=== PATIENT | male | born 1935 | race Caucasian/White ===

== ENCOUNTER 2016-07-17 08:29 | Day surgery (SDC) | payer MEDICARE ==
[~2016-07-17] VITALS: Ht 175.3 cm; Wt 90.5 kg
[2016-07-17] MEDS ORDERED: SODIUM CHLORID 0.9% 500 ML INJ 500 ML IV SCH (09:00)
[2016-07-17] MEDS ORDERED: SODIUM CHLORID 0.9% 500 ML IV PRN (09:15)
[2016-07-17] MEDS ORDERED: CHLORHEXIDINE GLUCONATE 2 % 1 PACK (2 CLOTHS) TOPICAL PRN (09:15)
[2016-07-17] MEDS ORDERED: LACTATED RINGER'S 1000 ML IV PRN (09:15)
[2016-07-17] MEDS ORDERED: INSULIN HUMAN REGULAR 1,000 UNITS/10 ML VIAL SQ PRN (09:15)
[2016-07-17] MEDS ORDERED: METOPROLOL TARTRATE 25 MG TAB PO PRN (09:15)
[2016-07-17] MEDS ORDERED: POVIDONE IODINE 5% (ANTISEPSIS KIT) 4 APPLICATIONS EACH NARE PRN (09:15)
[2016-07-17] MEDS ORDERED: LORazepam 1 MG TAB SL SCH (09:15)
[2016-07-17] MEDS ORDERED: CITA10TA4 PO (09:19)
[2016-07-17] MEDS ORDERED: AMIO200T PO (09:19)
[2016-07-17] MEDS ORDERED: VITATAB43 PO (09:19)
[2016-07-17] MEDS ORDERED: VITA100018 PO (09:19)
[2016-07-17] MEDS ORDERED: LISI-515 PO (09:19)
[2016-07-17] MEDS ORDERED: ASPI81TA81 (09:19)
[2016-07-17] MEDS ORDERED: PLAV75TA29 PO (09:19)
[2016-07-17] MEDS ORDERED: ATOR40TA16 PO (09:19)
[2016-07-17] MEDS ORDERED: TEMA30CA PO (09:19)
[2016-07-17] MEDS ORDERED: METO25TA3 PO (09:19)
[2016-07-17 09:32] LABS: AUTOMATED NEUTROPHIL # 3.6 TH/MM3 (1.8-7.7); BASOPHIL % 0.3 % (0.0-2.0); EOSINOPHIL # 0.1 TH/MM3 (0-0.4); EOSINOPHIL % 1.7 % (0.0-4.0); HEMATOCRIT 47.9 % (39.0-51.0); HEMO FLAGS DIFF FINAL; LYMPHOCYTE # 1.7 TH/MM3 (1.0-4.8); MEAN CORPUSCULAR HGB CONC 33.7 % (32.0-36.0); MONO % 7.3 % (0.0-8.0); NEUT % 61.7 % (16.0-70.0); PLATELET COUNT 174 TH/MM3 (150-450); RED BLOOD COUNT 5.38 MIL/MM3 (4.50-5.90); RED CELL DISTRIBUTION WIDTH 15.2 % (11.6-17.2); WHITE BLOOD COUNT 5.8 TH/MM3 (4.0-11.0)
[2016-07-17 09:33] VITALS: BP 134/84; PULSE 55; RESP 16; TEMP 97.6; O2SAT 94
[2016-07-17 09:41] LABS: APTT (PATIENT) 28.7 SEC (24.3-30.1); PROTHROMBIN TIME - PATIENT 11.4 SEC (9.8-11.6)
[2016-07-17 09:49] LABS: BICARBONATE 28.7 MEQ/L (21.0-32.0); POTASSIUM 4.1 MEQ/L (3.5-5.1)
[2016-07-17] MEDS ORDERED: ONDANSETRON HCL 4 MG/2 ML VIAL IV PUSH ONE (11:06)
[2016-07-17] MEDS ORDERED: PROPOFOL 200 MG/20 ML AMP IV ONE (11:06)
[2016-07-17] MEDS ORDERED: MIDAZOLAM HCL 2 MG/2 ML VIAL ONE (11:55)
[2016-07-17] MEDS ORDERED: ISOPROTERENOL HCL 1 MG/5 ML AMP ONE ×2 (12:53→12:56)
[2016-07-17] MEDS ORDERED: VANCOMYCIN 500 MG VIAL ONE (13:18)
[2016-07-17] MEDS ORDERED: VANCOMYCIN HCL 1000 MG VIAL ONE (13:19)
[2016-07-17] MEDS ORDERED: LIDOCAINE HCL 2% 50 ML VIAL ONE (13:19)
[2016-07-17] MEDS ORDERED: ceFAZolin INJ 1,000 MG VIAL ONE (13:19)
--- NOTE | 2016-07-17 13:45 | CATHPROC ---
[employer] HIS Report Study Information Study Number Admission Scheduled Start Study Start [id number] 07/17/2016 07/17/2016 Jul 17 2016 11:50AM Referring Institution Admit Source Facility Department 1 Other [facility] - Physician Gynecologist Physician and Clinical Staff Initial Meek Souza Flame Cutting Supervisor Domonique López,RT(R) TECH2 Additional Meek Souza Recorder Flaco RN, Kavon Recorder Michelle Whitley RN Scrub Angel Luis Mendez,RT(R) Procedures Performed Procedure Location (Site) Vessel Name Cardioversion RF Ablation RENEE Atruim Equipment Time Plasticator Description Size Mfg Part Number Used/Scraped BIOSENSE STRAUSS CATHETER, CELSIUS DS, 8MM, F [id number] 12:42 FR 7 Used INC. TYPE QUAD *[id number] 12:01 [employer] INDUSTRIES PACK, CCL CUSTOM * Used *[id number] 12:01 [employer] PACER URIBE, LIMB * 2530 Used [id number] 12:01 [employer] BLANKET,WARM AIR CCL * Used *[id number] 468781 12:00 [employer]. JEN MEDICAL CATHETER, JSN, QUAD FR 5 Used *[id number] 12:00 [employer] JEN MEDICAL CATHETER, JSN, QUAD FR 5 Used *[id number] 267025 12:00 [employer]. JEN MEDICAL CATHETER, JSN, QUAD FR 5 Used *[id number] 178074 12:00 [employer] JEN MEDICAL CATHETER, JSN, QUAD FR 5 Used *[id number] 12:01 ST. JEN MEDICAL ELECTRODE KIT, FATMATA X SURFACE * [id number] Used [id number] 12:00 [employer] J[employer] MEDICAL SHEATH, EPS, FR5 FAST CATH FR 5 Used *[id number] 871916 12:00 ST. JEN MEDICAL SHEATH, EPS, FR5 FAST CATH FR 5 Used *[id number] 770246 12:00 [employer]. JEN MEDICAL SHEATH, EPS, FR5 FAST CATH FR 5 Used *[id number] 12:00 [employer] JEN MEDICAL SHEATH, EPS, FR6 FAST CATH FR [address] [id number] Used 12:00 [employer] J[employer] MEDICAL SHEATH, EPS, FR8 FAST CATH FR 8 [id number] Used [place] PAD, ELECTROSURGICAL 12:01 * [id number] Used SURGICAL GROUNDING (BLUE) History: Allergies Allergy Reaction Sulfa Codeine History: Risk Factors Family History of Hypertension Dyslipidemia Previous ND Previous Heart Failure Premature CAD Yes Yes No Yes Yes Prior Valve Prior PCI Prior PCIDate Prior CABG Surgery No Yes 03/16/2013 No Cerebrovascular Peripheral Artery Chronic Lung On Dialysis Diabetes Disease Disease Disease No No No No No Labs Hgb (g/dl) Hct (%) WBC (l/cumm) Platelets (thousands) 12.00-18.00 37.00-55.00 4.80-10.80 140.00-450.00 16.1 47.9 5.8 174 Glucose (mg/dl) BUN (mg/dl) Creatinine (mg/dl) BUN:Creatinine (1:x) 60.00-110.00 8.00-20.00 0.10-9.00 10.00-20.00 108 14 1.1 12.7 Na (meq/l) K (meq/l) 138.00-146.00 3.80-5.10 142 4.1 INR (PTT:PT) 0.50-2.00 1 Medication Medication Total Dose (Bolus/Oral) Medication Total Dosage/Unit 1% XYLOCAINE 40 mL Medications (Bolus/Oral) Medication Time Given Dosage/Unit Administered By Reason 1% XYLOCAINE 07/17/2016 12:28:34 PM 20 mL Dudley, Hanscy 20 mL 1% XYLOCAINE given by Meek Buckner in Left Groin via Subcutaneous. 1% XYLOCAINE 07/17/2016 12:31:38 PM 20 mL Dudley, Hanscy 20 mL 1% XYLOCAINE given by Meek Buckner in Right Groin via Subcutaneous. Initial Case Assessment Cardiovascular HR 48 Edema Present Skin color Skin None Normal Warm Dry Circulatory - Lower Extremities Color Lower Right Color Lower Left Normal Normal Neurological State Oriented to time-place- Alert Moves all extremities person Respiration - General Respiration Rate SpO2 (%) (B/min) 14 96 Chronological Log Time Study Chronological Log 11:06:29 Patient Name, D.O.B, / Armband Verified By R.N. 11:25:07 Patient arrived via Bed. 11:26:41 History and physical on the chart or being dictated. 11:27:11 Familia Prominences Protected 11:27:39 Pre-op and post- op instructions given; patient acknowledges understanding of instructions. 11:28:33 Patient has been NPO for More than 6Hrs. 11:30:27 A # 20 IV was noted in the Antecubital (left). Grade = 0 11:30:47 A # 20 IV was noted in the Antecubital (right). Grade = 0 11:30:50 Presedation assessment performed by Physician Gynecologist RN. 11:32:10 Table restraints applied according to hospital policy 11:35:10 Disposable Defibrillator Pads Placed On Patient. 11:35:53 Patient Warmer Placed on the Table. 11:49:50 Reference ECG taken 11:50:01 Anesthesia at bedside. Assumes care of patient. 11:57:42 Skin Breakdown- NONE 12:08:11 Right groin prepped with 2% chlorhexidine, and with a 3 min. waiting time. 12:08:41 LEFT groin prepped with 2% chlorhexidine, and with a 3 min. waiting time. 12:18:33 MD paged Assessment: Initial Case, HR=48 BPM, Edema=None, Color=Normal, Skin = Warm, Dry Lower Right Extremities: Color=Normal 12:19:57 Lower Left Extremities: Color=Normal Neurological: State=Alert, Ox3, MARQUES Respiration: Resp=14 B/min, SpO2=96 % 12:20:56 MD arrived. Time Out. Correct patient, procedure, procedure equipment, site and side verified with physici an present. Time 12:27:13 concurred by MD, individual staff and PHARMACIST TECHNICIAN. 12:28:30 Case Start 12:28:34 20 mL 1% XYLOCAINE given by Meek Buckner in Left Groin via Subcutaneous. 12:28:48 Vascular access was obtained in the Fem Vein (left). 12:29:03 Vascular access was obtained in the Fem Vein (left). 12:29:09 Vascular access was obtained in the Fem Vein (left). 12:29:13 A SHEATH, EPS, FR5 FAST CATH FR 5 was advanced into the Fem Vein (left) using the Percutan eous technique. 12:30:11 A SHEATH, EPS, FR5 FAST CATH FR 5 was advanced into the Fem Vein (left) using the Percutan eous technique. 12:31:26 A SHEATH, EPS, FR5 FAST CATH FR 5 was advanced into the Fem Vein (left) using the Percutan eous technique. 12:31:38 20 mL 1% XYLOCAINE given by Meek Buckner in Right Groin via Subcutaneous. 12:32:14 Vascular access was obtained in the Fem Vein (right). 12:32:38 A SHEATH, EPS, FR6 FAST CATH FR 6 was advanced into the Fem Art (right) using the Percutan eous technique. 12:33:08 A SHEATH, EPS, FR8 FAST CATH FR 8 was advanced into the Fem Art (right) using the Percutan eous technique. A CATHETER, JSN, QUAD FR 5 was advanced vis Fem Vein (right) and placed in the CS. Placement w as visually 12:33:41 confirmed under fluoroscopy. A CATHETER, JSN, QUAD FR 5 was advanced vis Fem Vein (left) and placed in the HIS. Placement w as visually 12:35:03 confirmed under fluoroscopy. A CATHETER, JSN, QUAD FR 5 was advanced vis Fem Vein (left) and placed in the HRA. Placement w as visually 12:35:55 confirmed under fluoroscopy. A CATHETER, JSN, QUAD FR 5 was advanced vis Fem Vein (left) and placed in the RVA. Placement w as visually 12:36:46 confirmed under fluoroscopy. 12:37:59 Incremental Atrial Pacing in progress A CATHETER, CELSIUS DS, 8MM, F TYPE QUAD FR 7 was advanced vis Fem Vein (right) and placed in the Isthmus. 12:42:41 Placement was visually confirmed under fluoroscopy. 12:44:05 RF Ablation of the RENEE with a CATHETER, CELSIUS DS, 8MM, F TYPE QUAD FR 7. 12:50:24 Incremental Atrial Pacing in progress 12:52:05 REPORT TO Dequan WHITLEY RN 12:54:10 ALUTTER LINE ABLATED. A-FIB INDUCED 13:00:44 ECG rhythm of VT noted. Patient cardioverted at 300 joules. Success 13:02:40 ROOM BEING CHANGED OVER FOR DEF IMPLANT End Study - Contrast Media Used In Study Contrast Total Opened (mL) Total Used (mL) Total Wasted (mL) Unspecified 0 0 0 End Study - Maximum Contrast Load Max Contrast Load (mL) 392.8 End Study - Radiation Exposure Fluoro Time (minutes) 3.0 End Study - Patient Disposition Complications Transferred To Interventional Outcome No Physician Gynecologist Holding successful
--- NOTE | 2016-07-17 16:03 | PD.CARD ---
DUAL CHAMBER DEFIB IMPLANT PROCEDURE DATE: July 17, 2016 NYHA Classification: Class II (Mild) Prevention: Secondary Dual Chamber Defib Mr. Lee is a 80-year-old male with hx of ischemic cardiomyopathy, ejection fraction less than 30%, defibrillatory vest, ventricular tachycardia on electrophysiology study, who undergo dual-chamber defibrillator implantation for sudden secondary prevention and device testing. The risks, the nature and the benefit of the procedure were clearly stated to his . The risks include pneumothorax, cardiac perforation, stroke, and even . He understood and agreed to proceed. PROCEDURE As written informed consent was obtained prior to electrophysiology study, the patient was kept on the table where he was prepared and draped in the usual sterile fashion. Conscious sedation was initiated and maintained throughout the procedure by the anesthesiologist. Once sedation was verified, the left infraclavicular area was anesthetized with 2% Xylocaine. Using modified Seldinger technique, the left subclavian vein was cannulated on two occasions and two guidewires were advanced. Then, using #11 blade scalpel, a 3 centimeter incision was made two fingerbreadths below the clavicle. Dissection was then taken down to deep fascial layer using Bovie cautery and blunt dissection. Into the inferomedial direction, a device pocket was dissected. Then the wires were dissected into the pocket. A 2-0 Vicryl suture was placed around the wires to prevent back-bleeding. At this point, over the lateral wire, a 7-Ethiopian dilator and introducer was advanced. As the dilator and wire were removed, an active fixation right ventricular pacing, sensing and defibrillatory lead was advanced. After adequate pacing and sensing thresholds were obtained, the lead was secured in the pocket using #2 Ethibond suture. Then, over the remaining wire, a 7-Ethiopian dilator introducer was advanced. As the dilator and wire were removed, an active fixation right atrial pacing and sensing lead was advanced. After adequate pacing and sensing thresholds were obtained, the lead was secured in the pocket using #2 Ethibond suture. At that point, the pocket was copiously irrigated with antibiotic solution. The leads were connected to the generator and placed in the pocket. I did proceed with NIPS. The initial induction of T-wave shock which induced ventricular fibrillation which was adequately detected and treated by the ICD generator delivering a 20 20-joule defibrillatory shock converting the patient back into sinus rhythm. Shocking impedance was 38 ohms, charge time 5.0 seconds. At that point NIPS was complete. I did proceed with wound closure. The deep fascial layer was approximated using 2-0 Vicryl suture in a continuous fashion. The subcutaneous layer was approximated using 2-0 Vicryl suture in a continuous fashion. The subcuticular layer was approximated with 2-0 Vicryl suture in a continuos fashion. Dermabond adhesive was applied to the wound followed by a sterile pressure dressing. There was no complication. The patient tolerated procedure. Blood loss minimal. IMPLANTED HARDWARE The implanted defibrillator generator is a [employer] model number [id number], serial number [id number]. The right atrial pacing and sensing lead is a [employer]. The right ventricular pacing, sensing defibrillatory lead is a [employer] model number 7121-65. Serial # [id number]. THRESHOLDS The right atrial pacing threshold in bipolar mode was 0.7 volts at 0.4 milliseconds. Lead impedance 580 ohms and P wave at 1.9 millivolts. The right ventricular pacing threshold in bipolar mode was 0.7 volts at 0.4 milliseconds. Lead impedance 810 ohms and R wave at 11.3 millivolts. The right ventricle defibrillatory threshold less than equal to 20 joules. Shocking impedance 38 ohms, charge time 5.0 seconds. SETTINGS The device set in a DDD-50 upper limit 120 beats per minute. AV delay extended to maximum to facilitate A-pacing V-sensing. Defibrillatory portion for two zones, one zone for ventricular tachycardia between 160 to 240 beats per minute. Initial therapy consists of one burst of ATP, one ramp, 81%, 10 pulse, 10 second decremental, followed by a 20, then 30 and all subsequent shocks at 40 -joules defibrillatory shock. The second zone for ventricular fibrillation above 240 beats, first therapy at 30 and all subsequent shocks at 40-joules defibrillatory shock. CONCLUSIONS Successful defibrillator implantation and device testing. COMMENT AND RECOMMENDATIONS The patient will be transferred to telemetry unit. He will be observed. Meek Buckner MD July 17, 2016 16:03
--- NOTE | 2016-07-17 18:27 | RADRPT ---
EXAM DATE/TIME: 07/17/2016 17:52 [place] COMPARISON: No previous studies available for comparison. INDICATIONS : Post pacemaker. MEDICAL HISTORY : None. SURGICAL HISTORY : None. ENCOUNTER: Initial ACUITY: 1 day PAIN SCORE: 4/10 LOCATION: Bilateral chest FINDINGS: There is a bilead pacing/AICD device in place from the left subclavian approach. This appears well p laced. A pneumothorax is not present. The heart size is enlarged. The lungs are grossly clear. CONCLUSION: Bilead AICD device in place in good position from the left subclavian approach withou t a pneumothorax. Ruddy Gould MD on July 17, 2016 at 18:13 Board Certified Radiologist. This report was verified electronically.
--- NOTE | 2016-07-17 18:48 | EKG ---
Date Performed: 07/17/2016 Time Performed: 09:16:42 PTAGE: 80 years EKG: Sinus bradycardia. Inferior infarct - age undetermined Lateral ST-T changes may be due to m yocardial ischemia Abnormal ECG NO PREVIOUS TRACING DOCTOR: Shola Gilliam Interpretating Date/Time 07/17/2016 18:44:10
[2016-07-17 19:00] VITALS: BP 148/84; PULSE 75; RESP 16; TEMP 97.8; O2SAT 75
[2016-07-17 20:00] VITALS: PULSE 74
[2016-07-17 21:00] VITALS: PULSE 78
[2016-07-17] MEDS: oxyCODONE/ACETAMINOPHEN 5 MG/325 MG TAB PO PRN (21:19)
[2016-07-17 22:00] VITALS: PULSE 72
[2016-07-17 23:00] VITALS: BP 111/67; PULSE 72; PULSE 73; RESP 20; TEMP 98.3; O2SAT 93
[2016-07-18] VITALS (9 sets, daily range): BP systolic 121–139; BP diastolic 69–81; PULSE 60–93; RESP 16–18; TEMP 97–98.5; O2SAT 93–94
[2016-07-18] MEDS: oxyCODONE/ACETAMINOPHEN 5 MG/325 MG TAB PO PRN (04:24)
[2016-07-18] MEDS ORDERED: CEPH-460 PO (07:50)
--- NOTE | 2016-07-18 07:58 | PD.CARD.PN ---
Subjective Subjective Remarks Feels ok. No complaints. Objective Medications Current Medications Medications (Trade) Dose Ordered Sig/Gary Route Start Time Stop Time Status Last Admin Sodium Chloride 500 ml @ 30 mls/hr [id number] IV 07/17/16 09:00 Lactated Ringer's 1,000 ml @ 30 mls/hr Q24H PRN IV 07/17/16 09:15 07/20/16 09:14 (NS 500 ml Inj) 500 ml @ 30 mls/hr [id number] PRN IV 07/17/16 09:15 07/20/16 09:14 (Percocet 5-325 Mg) 1 tab Q6H PRN PO 07/17/16 22:00 07/18/16 04:24 Vital Signs / I&O Vital Signs Date Time Temp Pulse Resp B/P Pulse Ox O2 Delivery O2 Flow Rate FiO2 07/18/16 06:00 60 07/18/16 05:24 17 07/18/16 05:00 66 07/18/16 04:00 68 07/18/16 03:00 98.5 67 18 121/69 93 07/18/16 03:00 68 07/18/16 02:00 66 07/18/16 01:00 70 07/18/16 00:00 68 07/17/16 23:00 98.3 73 20 111/67 93 07/17/16 23:00 72 07/17/16 22:00 72 07/17/16 21:00 78 07/17/16 20:00 74 07/17/16 19:00 97.8 75 16 148/84 75 07/17/16 15:00 94 Room Air 07/17/16 09:33 97.6 55 16 134/84 94 Physical Exam GENERAL: Well-nourished, well-developed patient. SKIN: Warm and dry. LCW incision well approximated without erythema or drainage. HEAD: Normocephalic. EYES: No scleral icterus. No injection or drainage. NECK: Supple, trachea midline. No JVD or lymphadenopathy. CARDIOVASCULAR: Regular rate and rhythm without murmurs, gallops, or rubs. RESPIRATORY: Breath sounds equal bilaterally. No accessory muscle use. GASTROINTESTINAL: Abdomen soft, non-tender, nondistended. EXTREMITIES: No cyanosis, or edema. NEUROLOGICAL: Awake, alert, and oriented x 3. Non-focal. Laboratory Laboratory Tests Test 07/17/16 07/17/16 08:58 09:03 White Blood Count 5.8 TH/MM3 Red Blood Count 5.38 MIL/MM3 Hemoglobin 16.1 GM/DL Hematocrit 47.9 % Mean Corpuscular Volume 89.0 FL Mean Corpuscular Hemoglobin 30.0 PG Mean Corpuscular Hemoglobin 33.7 % Concent Red Cell Distribution Width 15.2 % Platelet Count 174 TH/MM3 Mean Platelet Volume 9.2 FL Neutrophils (%) (Auto) 61.7 % Lymphocytes (%) (Auto) 29.0 % Monocytes (%) (Auto) 7.3 % Eosinophils (%) (Auto) 1.7 % Basophils (%) (Auto) 0.3 % Neutrophils # (Auto) 3.6 TH/MM3 Lymphocytes # (Auto) 1.7 TH/MM3 Monocytes # (Auto) 0.4 TH/MM3 Eosinophils # (Auto) 0.1 TH/MM3 Basophils # (Auto) 0.0 TH/MM3 CBC Comment DIFF FINAL Differential Comment Prothrombin Time 11.4 SEC Prothromb Time International 1.0 RATIO Ratio Activated Partial 28.7 SEC Thromboplast Time Sodium Level 142 MEQ/L Potassium Level 4.1 MEQ/L Chloride Level 106 MEQ/L Carbon Dioxide Level 28.7 MEQ/L Anion Gap 7 MEQ/L Blood Urea Nitrogen 14 MG/DL Creatinine 1.14 MG/DL Estimat Glomerular Filtration 62 ML/MIN Rate Random Glucose 108 MG/DL Calcium Level 9.1 MG/DL Blood Type O POSITIVE O POSITIVE Antibody Screen NEGATIVE Imaging Last Impressions Chest X-Ray 07/17/16 0000 Signed Impressions: Service Date/Time: July 17:52 - CONCLUSION: Bilead AICD device in place in good position from the left subclavian approach without a pneumothorax. Ruddy Gould MD Assessment and Plan Problem List: (1) S/P ICD (internal cardiac defibrillator) procedure Assessment and Plan: Stable s/p ICD implant for SCD prevention. Device function appropriate, CXR negative. DC home, f/u with Dr. Buckner in 2 weeks, per my discussion with him. (2) Cardiomyopathy Assessment and Plan: Episode of VT while wearing lifevest. On beta hazel. Problem Qualifiers (1) Cardiomyopathy: Qualified Code: I25.5 - Ischemic cardiomyopathy Hannah Villa July 18, 2016 07:58
--- NOTE | 2016-07-29 09:08 | CATHPROC ---
[employer] HIS Report Study Information Study Number Scheduled Start Study Start [id number] 07/17/2016 Jul 17 2016 1:48PM Referring Institution Admit Source Facility Department 1 Other [facility] - Ultrasound Tech Physician and Clinical Staff Initial Meek Souza Geophysical Drafter Yara Rivas,ANTIONETTE Other Anesthesia, BEEF LUGGER Recorder Michelle Whitley,VALERIE Scrub Domonique López,RT(R) TECH2 Procedures Performed Procedure Lead Insertion Equipment Time Microgrinder Operator Description Size Mfg Part Number Used/Scraped DERMABOND, ADHESIVE SKIN [id number] 13:52 CORDIS/PACER * Used GLUE MINI *[id number] 13:52 MEDLINE INDUSTRIES SUTURE, STRIP PLUS 1/2" * Used *[id number] 13:52 MEDLINE PACER URIBE, LIMB * 2530 Used [id number] 13:52 MEDLINE PACER PACK, PACER CUSTOM * Used *[id number] 14:02 Cucin[employer] PACER SAFE SHEATH, FR7, 13CM FR 7 [id number] Used 14:02 Cuciniale PACER SAFE SHEATH, FR7, 13CM FR 7 [id number]-1007 Used 14:09 Needle Sponge Count 2 22 Used 14:09 Needle Sponge Count 20 200 Used 14:08 Needle Sponge Count 4 4 Used SUTURE, 0 ETHIBOND [CT1] (CX21D), 8pk SUTURE, 2-0 VICRYL [CT1] ([id number]) SUTURE, 2-0 VICRYL [CT1] (FCZ683L) [id number] 13:52 [employer] BLANKET,WARM AIR CCL * Used *[id number] DEFIBRILLATOR, FORTIFY 13:54 [employer]ICAL VVEVVVIRV [id number] Used DREW NGUYEN, DURATA ACTIVE FIXATION 7121Q-[address] 13:[address] [facility] 65CM Used 7121/65 *[id number] LEAD, TENDRIL SDX 1688TC 1688TC/52CM 13:54 [employer] 52CM Used 52CM *[id number] [facility] PAD, ELECTROSURGICAL 13:52 * [id number] Used SURGICAL GROUNDING ORANGE 13:52 [employer] DANIELA. ELECTRODE, PRO-PADZ BIPHASIC * [id number] Used History: Risk Factors Family History of Hypertension Dyslipidemia Previous [place] Previous Heart Failure Premature CAD Yes Yes Yes Yes Yes Prior Valve Prior PCI Prior CABG Surgery No Yes No Cerebrovascular Peripheral Artery Chronic Lung On Dialysis Diabetes Disease Disease Disease No No No No No Medication Medication Total Dose (Bolus/Oral) Medication Total Dosage/Unit 2% XYLOCAINE 50 mL Medications (Bolus/Oral) Medication Time Given Dosage/Unit Administered By Reason 2% XYLOCAINE 07/17/2016 1:55:43 PM 50 mL Dudley Meek 50 mL 2% XYLOCAINE given in lab by Meek Buckner in Left shoulder via Subcutaneous. Chronological Log Time Study Chronological Log 13:50:00 Sheath removed; pressure applied to access site. BY DANIAL BETWEEN PROCEDURES 13:55:22 Initial procedure has been completed. Beginning additional procedure. 13:55:23 NOTE: This patient is undergoing an additional procedure while still in the Cardiac Cath L ab. 13:55:24 2% CHLORHEXIDINE GLUCONATE WASH AND NASAL SWIPE DONE PRIOR TO PROCEDURE. First Sponge And Instrument Count Done by Domonique López, RT(R) TECH2. 13:55:34 Hypo's: 4, Sponges: 20, Bovie/scratch: 2 VERIFIED BY YARA Anne Sutures: 10, Blades: 1, Instruments: 26, Syveck Patches: 0 Time Out. Correct patient, procedure, procedure equipment, site and side verified with physici an present. Time 13:55:40 concurred by MD, individual staff and BEEF LUGGER. Time Out #2 - Consents verified, patient in correct position, all results are labled and displ ayed, safety precautions 13:55:41 taken, antibiotics administered. Time out concurred by MD, individual staff and BEEF LUGGER in proced ure 13:55:42 Case Start 13:55:43 50 mL 2% XYLOCAINE given in lab by Meek Buckner in Left shoulder via Subcutaneous. 13:55:45 Bovie ground pad applied to: RIGHT THIGH 13:56:52 Vascular access was obtained in the Subclav. Vein (Lft. 13:56:53 Vascular access was obtained in the Subclav. Vein (Lft. 13:57:10 Surgical Incision Made. 13:57:55 A pocket was created at the L Upper Chest. 13:58:00 A SAFE SHEATH, FR7, 13CM FR 7 was advanced into the Subclav. Vein (Lft using the Modified Seldinger technique. 13:58:40 A SAFE SHEATH, FR7, 13CM FR 7 was advanced into the Subclav. Vein (Lft using the Modified Seldinger technique. 14:04:44 A LEAD, DURATA ACTIVE FIXATION 7121/65 65CM was inserted and positioned in the RV. 14:04:53 Lead placement verified under fluoroscopy 14:04:54 The RV lead impedance and threshold being tested. 14:04:55 The RV lead was sutured to the fascia. 14:07:09 A LEAD, TENDRIL SDX 1688TC 52CM 52CM was inserted and positioned in the RA. 14:07:24 Lead placement verified under fluoroscopy 14:07:36 The Atrial lead impedance and threshold is being tested. 14:07:37 The Atrial lead was sutured to the fascia. 14:10:58 A DEFIBRILLATOR, JD RUSSELL DR VVEVVVIRV was connected and placed in the pocket. 14:11:09 A TWO Joul DFT was performed. 14:11:21 The DFT was Success at 20 Joules, 38 Ohms lead impedance and 5 SEC charge time. 14:11:31 Pocket flushed with antibiotic solution SECONG Sponge And Instrument Count Done by Domonique López, RT(R) TECH2. 14:12:11 Hypo's: 4, Sponges: 20, Bovie/scratch: 2 Sutures: 10, Blades: 1, Instruments: 26, Syveck Patches: 0 14:17:49 Case End FINAL Sponge And Instrument Count Done by Domonique López, RT(R) TECH2. 14:18:17 Hypo's: 4, Sponges: 20, Bovie/scratch: 2 Sutures: 10, Blades: 1, Instruments: 26, Syveck Patches: 0 14:29:37 Steri-strips and a sterile dressing applied to site. 14:29:39 A sling was placed on the affected arm. 14:29:40 DOCU called. Spoke to ROSETTA 14:29:48 A ICD Implant . (Dual) 14:29:53 Implant Procedure was performed. 14:30:45 Sterile dressing applied to site 14:30:46 No case complications noted. 14:30:48 Bedside Report will be given. 14:30:49 Implantable Device card placed in patient's chart. 14:30:54 Defibrillator and ground pads removed. Skin intact. 14:30:56 Patient moved to stretcher End Study - Contrast Media Used In Study Contrast Total Opened (mL) Total Used (mL) Total Wasted (mL) Unspecified 0 0 0 End Study - Radiation Exposure Fluoro Time (minutes) 2.2 End Study - Patient Disposition Complications Transferred To Interventional Outcome No Telemetry Bed successful
== END 2016-07-18 10:45 | disposition home or self-care (01) ==
LOC: HDOC 08:29 → HDIC 08:30 → HCIS 17:39 → HDOC 07-18 10:45
PROVIDERS: ATTEND Internal Medicine Interventional Cardiology
DX: I47.1 Supraventricular tachycardia (principal); I11.0 Hypertensive heart disease with heart failure; I50.9 Heart failure, unspecified; I25.5 Ischemic cardiomyopathy; I49.9 Cardiac arrhythmia, unspecified; E78.5 Hyperlipidemia, unspecified; I25.2 Old myocardial infarction; R00.2 Palpitations; Z79.01 Long term (current) use of anticoagulants; Z79.82 Long term (current) use of aspirin
CPT/HCPCS: 00534; 33249; 71010; 80048; 85025; 85610; 85730; 86850; 86900; 86901; 93005; 93613; 93653; 93655; C1721; C1730; C1732; C1895; C1898; C2630; J0690; J2250; J2405; J3010; J3370